=== PATIENT | male | born 1950 | race American Indian/Alaskan Native ===

== ENCOUNTER 2020-04-24 23:46 | Inpatient (IN) | payer MEDICARE, MEDICAID ==
--- NOTE | 2020-04-25 08:50 | History and Physical Report ---
GP History & Physical - History of Present Illness Date of admission: 04/25/20 Date of Examination: 04/25/20 Reason for Admission: Danger to self, Failure of Outpatient Treatment History of Present Illness: The patient's medical record was reviewed and the patient's progress was discussed with the nursing staff. The admission note states the pateint increasingly having auditory hallucination with the voice telling him to kill self by jumping into the front of a truck. Pt had previous hx/o suicide attempt by jumping into the traffic. During my interview with the patient today, he is in the dayroom awake. He is a/o x 3. The patient makes fair eye contact. He is calm and cooperative. He says he was admitted for "hearing voices." The patient says "I called 911 because it scared me." He says at the time "they were telling me to kill myself." The patient says "but right now I can't make out what they are saying." He says "it's just a bunch of talk right now." He denies SI/HI at present, but states he was "early this morning." He says, "just thoughts because of the voices." The patient says he's had one suicide attempt in the past. He denies any illicit drug use, alcohol or nicotine. PAST PSYCHIATRIC HISTORY: Diagnoses: Schizophrenia, bipolar Suicide attempts or Self-harm behavior: Once Prior psychiatric hospitalizations: "many" Substance Abuse history: Denies Previous psychiatric medications tried: Could not recall Outpatient treatment: Not recently PAST MEDICAL HISTORY: None reported Family Psychiatric History: None reported or documented SOCIAL HISTORY Marital Status: Single Living Arrangements: Alone Employment Status: Disbaled Access to guns/weapons: None reported Education: Bachelors History of Abuse: None reported Legal History: None reported REVIEW OF SYSTEMS Constitutional: Negative for weight loss ENT: Negative for stridor Respiratory: Negative for cough or hemoptysis All other systems reviewed and are negative MENTAL STATUS EXAMINATION General Appearance: Dressed appropriately Behavior: fair eye contact, calm and cooperative Cooperation: Participating/engaged Psychomotor Behavior: Psychomotor normal Mood: Okay Affect and affective range: congruent with mood Thought Process: goal oriented Thought Content: within reality Speech: Normal rate, volume and rythm Suicidal Ideation: denies SI Homicidal Ideation: Denies HI Hallucinations: Auditory Delusions: None elicited Impulse Control: unimpaired Insight and Judgment: Limited insight and judgment Memory: Normal Attention: Normal Orientation: Alert, oriented Assessment and Plan (1) Schizoaffective Disorder, Bipolar Type Current Visit: Yes Status: Acute Treatment Plan Patient admitted for inpatient psychiatric evaluation, medication adjustment and close monitoring The patient's behavior, mood, sleep and appetite will be closely monitored. Patient enrolled in individual and group therapeutic sessions and encouraged to attend. Patient provided with a safe and structured environment. Patient's physical health needs will be addressed by the Hospitalist. Hospitalist Consulted Labs including CBC, CMP, Lipid profile and Hemoglobin A1C levels ordered for baseline reference Social Assessment will be completed and the Real Estate Agent/Broker will work with patient and family to ensure a suitable and safe disposition Medication adjustment will be made as clinically indicated Start Risperidone 0.25mg po BID Usual Wellness Confucianist/Preservation: - Start Trazodone 50 mg po QHS - Start Melatonin 5 mg po QHS to promote circadian rhythm - Start [place]-3 for brain health, reduce impulsivity, and as adjunctive treatment for mood disorder, continue upon discharge given overall benefits. The patient agreed on the treatment plan, understood the risk, benefit, alternative treatment, potential consequence of no treatment, and gave informed consent. Initial Certification Inpatient psych services: I certify that the inpatient psychiatric services are required for treatment that could reasonably be expected to improve the patient's condition for command hallucinations and suicidal ideation. Estimated days: 7 Post hospital care: primary care provider, psychiatric provider Legal Status: Voluntary Reaction to Hospitalization: Accepting Medications and Allergies Allergies Allergy/AdvReac Type Severity Reaction Status Date / Time divalproex sodium Allergy Unknown Verified 04/25/20 01:17 [From Depakote] haloperidol [From Haldol] Allergy Unknown Verified 04/25/20 01:17 quetiapine [From Seroquel] Allergy Unknown Verified 04/25/20 01:17 Home Medications Medication Instructions Recorded Confirmed Last Taken Type Albuterol Sulfate [Proair 90 mcg IH Q6H PRN MDD 2 puffs 04/25/20 04/25/20 Unknown History Respiclick] Diclofenac EC [Voltaren] 50 mg PO BID 04/25/20 04/25/20 Unknown History Empagliflozin [Jardiance] 10 mg PO DAILY 04/25/20 04/25/20 Unknown History Furosemide [Lasix TAB] 20 mg PO DAILY 04/25/20 04/25/20 Unknown History Kenalog 0.1% CREAM 1 applic TP BID 04/25/20 04/25/20 Unknown History Losartan [Cozaar] 100 mg PO QDAY 04/25/20 04/25/20 Unknown History Lurasidone HCl [Latuda] 20 mg PO QPM 04/25/20 04/25/20 Unknown History Pantoprazole [Protonix TAB] 40 mg PO DAILY 04/25/20 04/25/20 Unknown History Potassium Chloride [K-Dur] 10 meq PO QDAY 04/25/20 04/25/20 Unknown History buPROPion [Wellbutrin] 100 mg PO DAILY 04/25/20 04/25/20 Unknown History glipiZIDE [Glucotrol] 5 mg PO BID 04/25/20 04/25/20 Unknown History traZODone [Desyrel] 100 mg PO HS 04/25/20 04/25/20 Unknown History Results - Results Labs/Vitals: Laboratory Last Values POC Glucose 114 mg/dL (70-105) H 04/25/20 07:56 Last Vital Signs Temp 97.8 F 04/25/20 02:41 Pulse 66 04/25/20 02:41 Resp 18 04/25/20 02:41 BP 128/71 04/25/20 02:41 Pulse Ox 97 04/25/20 02:41 Physical Examination - Constitutional Vitals: Vital Signs Temp Pulse Resp BP Pulse Ox 97.8 F 66 18 128/71 97 04/25/20 02:41 04/25/20 02:41 04/25/20 02:41 04/25/20 02:41 04/25/20 02:41 Temperature -Last 24 Hours Temperature 97.8 F Mental Status Exam - Vital signs Last Vital Signs Temp 97.8 F 04/25/20 02:41 Pulse 66 04/25/20 02:41 Resp 18 04/25/20 02:41 BP 128/71 04/25/20 02:41 Pulse Ox 97 04/25/20 02:41 Physician Certification - Certification Statement Physician Certification Statement: This is an acknowledgement statement that CHARY BLOOM is a 69 year old M who requires inpatient psychiatric admission for treatment which could reasonably be expected to improve the patient's condition for Estimated period of time patient will need to remain in the hospital: [ ] Plan for post-hospital care: [ ]
[2020-04-25] MEDS ORDERED: NON-FORMULARY EACH (Albuterol Sulfate [Proair Respiclick] 90 MCG) IH PRN (09:03)
[2020-04-25] MEDS ORDERED: ALBUTEROL 2.5 MG/3 ML NEBU IH PRN (09:21)
[2020-04-25] MEDS ORDERED: EMPAGLIFLOZIN 10 MG PO SCH (10:00)
[2020-04-25] MEDS ORDERED: KENALOG 0.1% TP SCH (10:00)
[2020-04-25] MEDS: PANTOPRAZOLE 40 MG TAB PO SCH (10:50)
[2020-04-25] MEDS: OMEGA-3 FATTY ACIDS/FISH OIL 1 GRAM CAP PO SCH ×2 (10:50→21:28)
[2020-04-25] MEDS: risperiDONE 0.25 MG TAB PO SCH ×2 (10:50→21:29)
[2020-04-25] MEDS: FUROSEMIDE 20 MG TAB PO SCH (10:50)
[2020-04-25] MEDS: buPROPion 100 MG TAB PO SCH (10:50)
[2020-04-25] MEDS: TRIAMCINOLONE 0.1% CREAM 15 GM TP SCH ×2 (10:50→21:27)
[2020-04-25] MEDS: DICLOFENAC EC 25 MG TAB PO SCH ×2 (10:51→21:28)
[2020-04-25] MEDS: LOSARTAN 50 MG TAB PO SCH (10:52)
[2020-04-25] MEDS: glipiZIDE 5 MG TAB PO SCH ×2 (10:52→17:46)
[2020-04-25] MEDS: POTASSIUM CHLORIDE ER 10 MEQ TAB PO SCH (17:52)
[2020-04-25] MEDS ORDERED: LURASIDONE HCL 20 MG PO SCH (18:00)
[2020-04-25] MEDS ORDERED: MELATONIN 5 MG TAB PO PRN (21:00)
[2020-04-25] MEDS: traZODone 100 MG TAB PO SCH ×2 (21:29→22:10)
[2020-04-26] MEDS: buPROPion 100 MG TAB PO SCH (10:36)
[2020-04-26] MEDS: POTASSIUM CHLORIDE ER 10 MEQ TAB PO SCH (10:36)
[2020-04-26] MEDS: OMEGA-3 FATTY ACIDS/FISH OIL 1 GRAM CAP PO SCH ×2 (10:36→21:22)
[2020-04-26] MEDS: glipiZIDE 5 MG TAB PO SCH ×2 (10:37→18:08)
[2020-04-26] MEDS: FUROSEMIDE 20 MG TAB PO SCH (10:37)
[2020-04-26] MEDS: LOSARTAN 50 MG TAB PO SCH (10:37)
[2020-04-26] MEDS: PANTOPRAZOLE 40 MG TAB PO SCH (10:37)
[2020-04-26] MEDS: risperiDONE 0.25 MG TAB PO SCH ×2 (10:39→21:21)
[2020-04-26] MEDS: TRIAMCINOLONE 0.1% CREAM 15 GM TP SCH ×2 (10:44→21:22)
--- NOTE | 2020-04-26 12:14 | Progress Note ---
Subjective Date of service: 04/26/20 Principal diagnosis: Schizophrenia Subjective Comment: During my interview with the patient this morning, he is in the dayroom. He is a/o x 3. He says his night went "find" and he feels "okay." When asked about the hallucinations, he says "yea I still hear them but they are not that bad." When asked him what did he hear "he says the same thing, them telling me to kill myself." He denies SI/HI. REVIEW OF SYSTEMS Constitutional: Negative for weight loss ENT: Negative for stridor Respiratory: Negative for cough or hemoptysis All other systems reviewed and are negative MENTAL STATUS EXAMINATION General Appearance: Dressed appropriately Behavior: fair eye contact, calm and cooperative Cooperation: Participating/engaged Psychomotor Behavior: Psychomotor normal Mood: Okay Affect and affective range: congruent with mood Thought Process: goal oriented Thought Content: within reality Speech: Normal rate, volume and rythm Suicidal Ideation: denies SI Homicidal Ideation: Denies HI Hallucinations: Auditory Delusions: None elicited Impulse Control: unimpaired Insight and Judgment: Limited insight and judgment Memory: Normal Attention: Normal Orientation: Alert, oriented Assessment and Plan (1) Schizoaffective Disorder, Bipolar Type Current Visit: Yes Status: Acute Treatment Plan Patient admitted for inpatient psychiatric evaluation, medication adjustment and close monitoring The patient's behavior, mood, sleep and appetite will be closely monitored. Patient enrolled in individual and group therapeutic sessions and encouraged to attend. Patient provided with a safe and structured environment. Patient's physical health needs will be addressed by the Hospitalist. Hospitalist Consulted Labs including CBC, CMP, Lipid profile and Hemoglobin A1C levels ordered for baseline reference Social Assessment will be completed and the Bank Courier will work with patient and family to ensure a suitable and safe disposition Medication adjustment will be made as clinically indicated Increased Risperidone 0.5mg po BID d/c trazodone 50mg qhs (pt states he's allergic) Scheduled Melatonin 5mg qhs Usual Wellness Gnosticist/Preservation: - Start Trazodone 50 mg po QHS - Start Melatonin 5 mg po QHS to promote circadian rhythm - Start [place]-3 for brain health, reduce impulsivity, and as adjunctive treatment for mood disorder, continue upon discharge given overall benefits. The patient agreed on the treatment plan, understood the risk, benefit, alternative treatment, potential consequence of no treatment, and gave informed consent. Estimated days: 7 Post hospital care: primary care provider, psychiatric provider Medications and Allergies Allergies Allergy/AdvReac Type Severity Reaction Status Date / Time divalproex sodium Allergy Unknown Verified 04/25/20 01:17 [From Depakote] haloperidol [From Haldol] Allergy Unknown Verified 04/25/20 01:17 quetiapine [From Seroquel] Allergy Unknown Verified 04/25/20 01:17 Home Medications Medication Instructions Recorded Confirmed Last Taken Type Albuterol Sulfate [Proair 90 mcg IH Q6H PRN MDD 2 puffs 04/25/20 04/25/20 Unknown History Respiclick] Diclofenac EC [Voltaren] 50 mg PO BID 04/25/20 04/25/20 Unknown History Empagliflozin [Jardiance] 10 mg PO DAILY 04/25/20 04/25/20 Unknown History Furosemide [Lasix TAB] 20 mg PO DAILY 04/25/20 04/25/20 Unknown History Kenalog 0.1% CREAM 1 applic TP BID 04/25/20 04/25/20 Unknown History Losartan [Cozaar] 100 mg PO QDAY 04/25/20 04/25/20 Unknown History Lurasidone HCl [Latuda] 20 mg PO QPM 04/25/20 04/25/20 Unknown History Pantoprazole [Protonix TAB] 40 mg PO DAILY 04/25/20 04/25/20 Unknown History Potassium Chloride [K-Dur] 10 meq PO QDAY 04/25/20 04/25/20 Unknown History buPROPion [Wellbutrin] 100 mg PO DAILY 04/25/20 04/25/20 Unknown History glipiZIDE [Glucotrol] 5 mg PO BID 04/25/20 04/25/20 Unknown History traZODone [Desyrel] 100 mg PO HS 04/25/20 04/25/20 Unknown History Active Meds: Active Medications Albuterol (Proventil) 2.5 mg IH Q4H PRN PRN Reason: Shortness Of Breath Bupropion HCl (Wellbutrin) 100 mg PO DAILY [facility] Last Admin: 04/26/20 10:36 Dose: 100 mg Documented by: Diclofenac Sodium (Voltaren) 50 mg PO BID [facility] Last Admin: 04/25/20 21:28 Dose: 50 mg Documented by: Fish Oil (Fish Oil) 2,000 mg PO BID [facility] Last Admin: 04/26/20 10:36 Dose: 2,000 mg Documented by: Furosemide (Lasix) 20 mg PO DAILY [facility] Last Admin: 04/26/20 10:37 Dose: 20 mg Documented by: Glipizide (Glucotrol) 5 mg PO BIDDIAB [facility] Last Admin: 04/26/20 10:37 Dose: 5 mg Documented by: Losartan Potassium (Cozaar) 100 mg PO QDAY [facility] Last Admin: 04/26/20 10:37 Dose: 100 mg Documented by: Melatonin (Melatonin) 5 mg PO QHS PRN PRN Reason: Sleep Miscellaneous Medication (Empagliflozin [Jardiance]) 10 mg PO DAILY [facility] Miscellaneous Medication (Lurasidone Hcl [Latuda]) 20 mg PO QPM [facility] Pantoprazole Sodium (Protonix) 40 mg PO DAILY [facility] Last Admin: 04/26/20 10:37 Dose: 40 mg Documented by: Potassium Chloride (K-Dur) 10 meq PO QDAY [facility] Last Admin: 04/26/20 10:36 Dose: 10 meq Documented by: Risperidone (Risperdal) 0.25 mg PO BID [facility] Last Admin: 04/26/20 10:39 Dose: 0.25 mg Documented by: Trazodone HCl (Desyrel) 100 mg PO HS [facility] Last Admin: 04/25/20 22:10 Dose: Not Given Documented by: Triamcinolone Acetonide (Kenalog) 1 applic TP BID [facility] Last Admin: 04/26/20 10:44 Dose: 1 applic Documented by: Results - Results Labs/Vitals: Laboratory Last Values POC Glucose 123 mg/dL (70-105) H 04/26/20 08:08 Last Vital Signs Temp 99.4 F 04/26/20 08:54 Pulse 85 04/26/20 10:37 Resp 18 04/26/20 08:54 BP 122/71 04/26/20 10:37 Pulse Ox 98 04/26/20 08:54
--- NOTE | 2020-04-26 14:17 | Consultation ---
History of Present Illness - Reason for Consult Consult date: 04/26/20 - History of Present Illness HPI As per psych The patient's medical record was reviewed and the patient's progress was discussed with the nursing staff. The admission note states the pateint increasingly having auditory hallucination with the voice telling him to kill self by jumping into the front of a truck. Pt had previous hx/o suicide attempt by jumping into the traffic. During my interview with the patient today, he is in the dayroom awake. He is a/o x 3. The patient makes fair eye contact. He is calm and cooperative. He says he was admitted for "hearing voices." The patient says "I called 911 because it scared me." He says at the time "they were telling me to kill myself." The patient says "but right now I can't make out what they are saying." He says "it's just a bunch of talk right now." He denies SI/HI at present, but states he was "early this morning." He says, "just thoughts because of the voices." The patient says he's had one suicide attempt in the past. He denies any illicit drug use, alcohol or nicotine. Patient seen and examined at bedside in psych unit. He mentions he has a history of DM and HTN . His home medications have been reconciled. Past History Past Medical History: diabetes, hypertension Medications and Allergies Allergies Allergy/AdvReac Type Severity Reaction Status Date / Time divalproex sodium Allergy Unknown Verified 04/25/20 01:17 [From Depakote] haloperidol [From Haldol] Allergy Unknown Verified 04/25/20 01:17 quetiapine [From Seroquel] Allergy Unknown Verified 04/25/20 01:17 Home Medications Medication Instructions Recorded Confirmed Last Taken Type Albuterol Sulfate [Proair 90 mcg IH Q6H PRN MDD 2 puffs 04/25/20 04/25/20 Unknown History Respiclick] Diclofenac EC [Voltaren] 50 mg PO BID 04/25/20 04/25/20 Unknown History Empagliflozin [Jardiance] 10 mg PO DAILY 04/25/20 04/25/20 Unknown History Furosemide [Lasix TAB] 20 mg PO DAILY 04/25/20 04/25/20 Unknown History Kenalog 0.1% CREAM 1 applic TP BID 04/25/20 04/25/20 Unknown History Losartan [Cozaar] 100 mg PO QDAY 04/25/20 04/25/20 Unknown History Lurasidone HCl [Latuda] 20 mg PO QPM 04/25/20 04/25/20 Unknown History Pantoprazole [Protonix TAB] 40 mg PO DAILY 04/25/20 04/25/20 Unknown History Potassium Chloride [K-Dur] 10 meq PO QDAY 04/25/20 04/25/20 Unknown History buPROPion [Wellbutrin] 100 mg PO DAILY 04/25/20 04/25/20 Unknown History glipiZIDE [Glucotrol] 5 mg PO BID 04/25/20 04/25/20 Unknown History traZODone [Desyrel] 100 mg PO HS 04/25/20 04/25/20 Unknown History Active Meds: Active Medications Albuterol (Proventil) 2.5 mg IH Q4H PRN PRN Reason: Shortness Of Breath Bupropion HCl (Wellbutrin) 100 mg PO DAILY [facility] Last Admin: 04/26/20 10:36 Dose: 100 mg Documented by: Diclofenac Sodium (Voltaren) 50 mg PO BID [facility] Last Admin: 04/25/20 21:28 Dose: 50 mg Documented by: Fish Oil (Fish Oil) 2,000 mg PO BID [facility] Last Admin: 04/26/20 10:36 Dose: 2,000 mg Documented by: Furosemide (Lasix) 20 mg PO DAILY [facility] Last Admin: 04/26/20 10:37 Dose: 20 mg Documented by: Glipizide (Glucotrol) 5 mg PO BIDDIAB [facility] Last Admin: 04/26/20 10:37 Dose: 5 mg Documented by: Losartan Potassium (Cozaar) 100 mg PO QDAY [facility] Last Admin: 04/26/20 10:37 Dose: 100 mg Documented by: Melatonin (Melatonin) 5 mg PO QHS [facility] Miscellaneous Medication (Empagliflozin [Jardiance]) 10 mg PO DAILY [facility] Miscellaneous Medication (Lurasidone Hcl [Latuda]) 20 mg PO QPM [facility] Pantoprazole Sodium (Protonix) 40 mg PO DAILY [facility] Last Admin: 04/26/20 10:37 Dose: 40 mg Documented by: Potassium Chloride (K-Dur) 10 meq PO QDAY [facility] Last Admin: 04/26/20 10:36 Dose: 10 meq Documented by: Risperidone (Risperdal) 0.5 mg PO BID [facility] Triamcinolone Acetonide (Kenalog) 1 applic TP BID [facility] Last Admin: 04/26/20 10:44 Dose: 1 applic Documented by: Exam - Physical Exam Narrative exam: VITAL SIGNS: Reviewed. GENERAL: Awake and alert on response to questions HEAD: No signs of head trauma. EYES: Pupils are equal. Extraocular motions intact. EARS: Hearing grossly intact. MOUTH: Oropharynx is normal. NECK: No adenopathy, no JVD. CHEST: Chest with diminished breath sounds bilaterally. No wheezes, rales, or rhonchi. CARDIAC: Regular rate and rhythm. S1 and S2, without murmurs, gallops, or rubs. VASCULAR: No Edema. Peripheral pulses normal and equal in all extremities. ABDOMEN: Soft, non tender and non distended. No rebound or guarding, and no masses palpated. Bowel Sounds normal. MUSCULOSKELETAL: Good range of motion of all major joints. Extremities without clubbing, cyanosis or edema. NEUROLOGIC EXAM: Alert and oriented x3. No focal neurologic deficits PSYCHIATRIC: Talkative SKIN: No obvious lesions - Constitutional Vitals: Temp Pulse Resp BP Pulse Ox 99.4 F 85 18 122/71 98 04/26/20 08:54 04/26/20 10:37 04/26/20 08:54 04/26/20 10:37 04/26/20 08:54 Results - Labs Labs: Abnormal lab results 10/24/20 10/24/20 10/25/20 Range/Units 17:12 19:47 08:08 POC Glucose 198 H 150 H 123 H (70-105) mg/dL Assessment and Plan - Patient Problems (1) Psychiatric diagnosis Current Visit: Yes Status: Acute Plan to address problem: Management as per psych (2) Hypertension Current Visit: Yes Status: Acute Plan to address problem: Continue losartan (3) Diabetes mellitus Current Visit: Yes Status: Acute Plan to address problem: Continue current medications Monitor blood glucose Check HbA1c and lipid panel.
[2020-04-26] MEDS: DICLOFENAC EC 25 MG TAB PO SCH ×2 (18:03→21:21)
[2020-04-26] MEDS: MELATONIN 5 MG TAB PO SCH (21:22)
[2020-04-26 22:08] LABS: Bilirubin,Urine NEG (Negative); Blood,Urine SM (Negative); Color,Urine Yellow (Yellow); Protein,Urine <15 mg/dL mg/dL (Negative); Urobilinogen,Urine < 2.0 mg/dL (<2.0); WBC,Urine < 1.0 /HPF (0.0-6.0)
[2020-04-27] MEDS: glipiZIDE 5 MG TAB PO SCH ×2 (09:17→16:35)
[2020-04-27] MEDS: buPROPion 100 MG TAB PO SCH (09:17)
[2020-04-27] MEDS: TRIAMCINOLONE 0.1% CREAM 15 GM TP SCH ×2 (09:17→22:16)
[2020-04-27] MEDS: FUROSEMIDE 20 MG TAB PO SCH (09:18)
[2020-04-27] MEDS: OMEGA-3 FATTY ACIDS/FISH OIL 1 GRAM CAP PO SCH ×2 (09:18→22:14)
[2020-04-27] MEDS: DICLOFENAC EC 25 MG TAB PO SCH ×2 (09:18→22:15)
[2020-04-27] MEDS: PANTOPRAZOLE 40 MG TAB PO SCH (09:18)
[2020-04-27] MEDS: risperiDONE 0.25 MG TAB PO SCH ×2 (09:18→22:17)
[2020-04-27] MEDS: LOSARTAN 50 MG TAB PO SCH (09:18)
[2020-04-27] MEDS: POTASSIUM CHLORIDE ER 10 MEQ TAB PO SCH (09:19)
[2020-04-27 09:43] LABS: Basophils # (Auto) 0.1 K/mm3 (0.0-0.1); Eosinophils # (Auto) 0.2 K/mm3 (0.0-0.4); Eosinophils % (Auto) 2.4 % (0.0-4.3); Hematocrit 43.6 % (35.5-45.6); Hemoglobin 15.2 gm/dl (11.8-15.2); Lymphocytes # (Auto) 2.4 K/mm3 (1.2-5.4); Lymphocytes % (Auto) 35.6 % (13.4-35.0); Mean Corpuscular HGB Conc 35 % (32-34); Mean Corpuscular Volume 88 fl (84-94); Monocytes # (Auto) 0.7 K/mm3 (0.0-0.8); Monocytes % (Auto) 10.5 % (0.0-7.3); Platelet Count 193 K/mm3 (140-440); Red Blood Count 4.97 M/mm3 (3.65-5.03); Red Cell Distribution Width 14.7 % (13.2-15.2)
[2020-04-27 09:55] LABS: Alanine Aminotransferase 24 units/L (7-56); Albumin 4.1 g/dL (3.9-5); BUN/Creatinine Ratio 13; Blood Urea Nitrogen 17 mg/dL (9-20); Calcium 9.5 mg/dL (8.4-10.2); Chol/HDL Ratio 4.04 %; HDL Cholesterol 42 mg/dL (40-59); Hemolysis Index 11; LDL Cholesterol,Direct 110 mg/dL (50-130)
[2020-04-27] MEDS: MELATONIN 5 MG TAB PO SCH (22:14)
[2020-04-28] MEDS ORDERED: OMEGA-3 FATTY ACIDS/FISH OIL 1 GRAM CAP PO ONE (09:55)
[2020-04-28] MEDS ORDERED: FUROSEMIDE 20 MG TAB ONE (09:55)
[2020-04-28] MEDS ORDERED: LOSARTAN 50 MG TAB ONE (09:55)
[2020-04-28] MEDS ORDERED: PANTOPRAZOLE 40 MG TAB PO ONE (09:55)
[2020-04-28] MEDS ORDERED: risperiDONE 0.25 MG TAB ONE (09:55)
[2020-04-28] MEDS ORDERED: buPROPion 100 MG TAB ONE (10:00)
[2020-04-28] MEDS: DICLOFENAC EC 25 MG TAB PO SCH ×2 (10:16→21:20)
[2020-04-28] MEDS: LOSARTAN 50 MG TAB PO SCH (17:16)
[2020-04-28] MEDS: glipiZIDE 5 MG TAB PO SCH ×2 (17:16→18:19)
[2020-04-28] MEDS: OMEGA-3 FATTY ACIDS/FISH OIL 1 GRAM CAP PO SCH ×2 (17:17→21:24)
[2020-04-28] MEDS: FUROSEMIDE 20 MG TAB PO SCH (17:17)
[2020-04-28] MEDS: risperiDONE 0.25 MG TAB PO SCH ×2 (17:17→21:22)
[2020-04-28] MEDS: PANTOPRAZOLE 40 MG TAB PO SCH (17:17)
[2020-04-28] MEDS: TRIAMCINOLONE 0.1% CREAM 15 GM TP SCH ×2 (17:17→21:22)
[2020-04-28] MEDS: POTASSIUM CHLORIDE ER 10 MEQ TAB PO SCH (17:17)
[2020-04-28] MEDS: buPROPion 100 MG TAB PO SCH (17:18)
--- NOTE | 2020-04-28 18:38 | Progress Note ---
Subjective Date of service: 04/28/20 Principal diagnosis: Schizophrenia Subjective Comment: During my interview with the patient this morning, he is in the dayroom. He is a/o x 3. He is much better today than yesterday. He is smiling and verbalizes "feeling a lot better." He says he slept good. He denies SI/HI. He also denies hallucinations of any kind. REVIEW OF SYSTEMS Constitutional: Negative for weight loss ENT: Negative for stridor Respiratory: Negative for cough or hemoptysis All other systems reviewed and are negative MENTAL STATUS EXAMINATION General Appearance: Dressed appropriately Behavior: good eye contact, calm and cooperative Cooperation: Participating/engaged Psychomotor Behavior: Psychomotor normal Mood: Okay Affect and affective range: congruent with mood Thought Process: goal oriented Thought Content: within reality Speech: Normal rate, volume and rhythm Suicidal Ideation: denies SI Homicidal Ideation: Denies HI Hallucinations: Denies Delusions: None elicited Impulse Control: unimpaired Insight and Judgment: Limited insight and judgment Memory: Normal Attention: Normal Orientation: Alert, oriented Assessment and Plan (1) Schizoaffective Disorder, Bipolar Type Current Visit: Yes Status: Acute Treatment Plan Patient admitted for inpatient psychiatric evaluation, medication adjustment and close monitoring The patient's behavior, mood, sleep and appetite will be closely monitored. Patient enrolled in individual and group therapeutic sessions and encouraged to attend. Patient provided with a safe and structured environment. Patient's physical health needs will be addressed by the Hospitalist. Hospitalist Consulted Labs including CBC, CMP, Lipid profile and Hemoglobin A1C levels ordered for baseline reference Social Assessment will be completed and the Still Operator Helper will work with patient and family to ensure a suitable and safe disposition Medication adjustment will be made as clinically indicated No changes today Usual Wellness Gnosticist/Preservation: - Start Trazodone 50 mg po QHS - Start Melatonin 5 mg po QHS to promote circadian rhythm - Start [place]-3 for brain health, reduce impulsivity, and as adjunctive treatment for mood disorder, continue upon discharge given overall benefits. The patient agreed on the treatment plan, understood the risk, benefit, alternative treatment, potential consequence of no treatment, and gave informed consent. Estimated days: 2 Post hospital care: primary care provider, psychiatric provider Medications and Allergies Allergies Allergy/AdvReac Type Severity Reaction Status Date / Time divalproex sodium Allergy Unknown Verified 04/25/20 01:17 [From Depakote] haloperidol [From Haldol] Allergy Unknown Verified 04/25/20 01:17 quetiapine [From Seroquel] Allergy Unknown Verified 04/25/20 01:17 Home Medications Medication Instructions Recorded Confirmed Last Taken Type Albuterol Sulfate [Proair 90 mcg IH Q6H PRN MDD 2 puffs 04/25/20 04/25/20 Unknown History Respiclick] Diclofenac EC [Voltaren] 50 mg PO BID 04/25/20 04/25/20 Unknown History Empagliflozin [Jardiance] 10 mg PO DAILY 04/25/20 04/25/20 Unknown History Furosemide [Lasix TAB] 20 mg PO DAILY 04/25/20 04/25/20 Unknown History Kenalog 0.1% CREAM 1 applic TP BID 04/25/20 04/25/20 Unknown History Losartan [Cozaar] 100 mg PO QDAY 04/25/20 04/25/20 Unknown History Lurasidone HCl [Latuda] 20 mg PO QPM 04/25/20 04/25/20 Unknown History Pantoprazole [Protonix TAB] 40 mg PO DAILY 04/25/20 04/25/20 Unknown History Potassium Chloride [K-Dur] 10 meq PO QDAY 04/25/20 04/25/20 Unknown History buPROPion [Wellbutrin] 100 mg PO DAILY 04/25/20 04/25/20 Unknown History glipiZIDE [Glucotrol] 5 mg PO BID 04/25/20 04/25/20 Unknown History traZODone [Desyrel] 100 mg PO HS 04/25/20 04/25/20 Unknown History Active Meds: Active Medications Albuterol (Proventil) 2.5 mg IH Q4H PRN PRN Reason: Shortness Of Breath Bupropion HCl (Wellbutrin) 100 mg PO DAILY [facility] Last Admin: 04/28/20 17:18 Dose: Not Given Documented by: Diclofenac Sodium (Voltaren) 50 mg PO BID [facility] Last Admin: 04/28/20 10:16 Dose: Not Given Documented by: Fish Oil (Fish Oil) 2,000 mg PO BID [facility] Last Admin: 04/28/20 17:17 Dose: Not Given Documented by: Furosemide (Lasix) 20 mg PO DAILY [facility] Last Admin: 04/28/20 17:17 Dose: Not Given Documented by: Glipizide (Glucotrol) 5 mg PO BIDDIAB [facility] Last Admin: 04/28/20 18:19 Dose: 5 mg Documented by: Losartan Potassium (Cozaar) 100 mg PO QDAY [facility] Last Admin: 04/28/20 17:16 Dose: Not Given Documented by: Melatonin (Melatonin) 5 mg PO QHS [facility] Last Admin: 04/27/20 22:14 Dose: 5 mg Documented by: Miscellaneous Medication (Empagliflozin [Jardiance]) 10 mg PO DAILY [facility] Miscellaneous Medication (Lurasidone Hcl [Latuda]) 20 mg PO QPM [facility] Pantoprazole Sodium (Protonix) 40 mg PO DAILY [facility] Last Admin: 04/28/20 17:17 Dose: Not Given Documented by: Potassium Chloride (K-Dur) 10 meq PO QDAY [facility] Last Admin: 04/28/20 17:17 Dose: Not Given Documented by: Risperidone (Risperdal) 0.5 mg PO BID [facility] Last Admin: 04/28/20 17:17 Dose: Not Given Documented by: Triamcinolone Acetonide (Kenalog) 1 applic TP BID [facility] Last Admin: 04/28/20 17:17 Dose: Not Given Documented by: Results - Results Labs/Vitals: Laboratory Last Values WBC 6.8 K/mm3 (4.5-11.0) 04/27/20 08:56 RBC 4.97 M/mm3 (3.65-5.03) 04/27/20 08:56 Hgb 15.2 gm/dl (11.8-15.2) 04/27/20 08:56 Hct 43.6 % (35.5-45.6) 04/27/20 08:56 MCV 88 fl (84-94) 04/27/20 08:56 MCH 31 pg (28-32) 04/27/20 08:56 MCHC 35 % (32-34) H 04/27/20 08:56 RDW 14.7 % (13.2-15.2) 04/27/20 08:56 Plt Count 193 K/mm3 (140-440) 04/27/20 08:56 Lymph % (Auto) 35.6 % (13.4-35.0) H 04/27/20 08:56 [place] % (Auto) 10.5 % (0.0-7.3) H 04/27/20 08:56 Eos % (Auto) 2.4 % (0.0-4.3) 04/27/20 08:56 Baso % (Auto) 1.0 % (0.0-1.8) 04/27/20 08:56 Lymph # (Auto) 2.4 K/mm3 (1.2-5.4) 04/27/20 08:56 [place] # (Auto) 0.7 K/mm3 (0.0-0.8) 04/27/20 08:56 Eos # (Auto) 0.2 K/mm3 (0.0-0.4) 04/27/20 08:56 Baso # (Auto) 0.1 K/mm3 (0.0-0.1) 04/27/20 08:56 Seg Neutrophils % 50.5 % (40.0-70.0) 04/27/20 08:56 Seg Neutrophils # 3.4 K/mm3 (1.8-7.7) 04/27/20 08:56 Sodium 131 mmol/L (137-145) L 04/27/20 08:56 Potassium 4.3 mmol/L (3.6-5.0) 04/27/20 08:56 Chloride 95.8 mmol/L (98-107) L 04/27/20 08:56 Carbon Dioxide 23 mmol/L (22-30) 04/27/20 08:56 Anion Gap 17 mmol/L 04/27/20 08:56 BUN 17 mg/dL (9-20) 04/27/20 08:56 Creatinine 1.3 mg/dL (0.8-1.3) 04/27/20 08:56 Estimated GFR > 60 ml/min 04/27/20 08:56 BUN/Creatinine Ratio 13 % 04/27/20 08:56 Glucose 193 mg/dL (75-100) H 04/27/20 08:56 POC Glucose 121 mg/dL (70-105) H 04/28/20 07:33 Hemoglobin A1c 6.9 % (4-6) H 04/27/20 08:56 Calcium 9.5 mg/dL (8.4-10.2) 04/27/20 08:56 Total Bilirubin 0.60 mg/dL (0.1-1.2) 04/27/20 08:56 AST 29 units/L (5-40) 04/27/20 08:56 ALT 24 units/L (7-56) 04/27/20 08:56 Alkaline Phosphatase 61 units/L (35-129) 04/27/20 08:56 Total Protein 8.0 g/dL (6.3-8.2) 04/27/20 08:56 Albumin 4.1 g/dL (3.9-5) 04/27/20 08:56 Albumin/Globulin Ratio 1.1 % 04/27/20 08:56 Triglycerides 175 mg/dL (2-149) H 04/27/20 08:56 Cholesterol 170 mg/dL (50-199) 04/27/20 08:56 LDL Cholesterol Direct 110 mg/dL (50-130) 04/27/20 08:56 HDL Cholesterol 42 mg/dL (40-59) 04/27/20 08:56 Cholesterol/HDL Ratio 4.04 % 04/27/20 08:56 TSH 1.070 mlU/mL (0.270-4.200) 04/27/20 08:56 Urine Color Yellow (Yellow) 04/25/20 Unknown Urine Turbidity Clear (Clear) 04/25/20 Unknown Urine pH 6.0 (5.0-7.0) 04/25/20 Unknown Ur Specific [place] 1.005 (1.003-1.030) 04/25/20 Unknown Urine Protein <15 mg/dl mg/dL (Negative) 04/25/20 Unknown Urine Glucose (UA) 150 mg/dL (Negative) 04/25/20 Unknown Urine Ketones Neg mg/dL (Negative) 04/25/20 Unknown Urine Blood Sm (Negative) 04/25/20 Unknown Urine Nitrite Neg (Negative) 04/25/20 Unknown Urine Bilirubin Neg (Negative) 04/25/20 Unknown Urine Urobilinogen < 2.0 mg/dL (<2.0) 04/25/20 Unknown Ur Leukocyte Esterase Neg (Negative) 04/25/20 Unknown Urine WBC (Auto) < 1.0 /HPF (0.0-6.0) 04/25/20 Unknown Urine RBC (Auto) 2.0 /HPF (0.0-6.0) 04/25/20 Unknown U Epithel Cells (Auto) < 1.0 /HPF (0-13.0) 04/25/20 Unknown Last Vital Signs Temp 98.7 F 04/28/20 07:21 Pulse 73 04/28/20 07:21 Resp 18 04/28/20 07:21 BP 125/75 04/28/20 07:21 Pulse Ox 96 04/28/20 07:21
--- NOTE | 2020-04-28 18:46 | Progress Note ---
Subjective Date of service: 04/27/20 Principal diagnosis: Schizophrenia Subjective Comment: During my interview with the patient this morning, he is in the dayroom. He is a/o x 3. He is off to himself, withdrawn. The patient becomes tearful during the interview. He says "I'm homeless. I don't have anywhere to stay." He verbalize "hearing voices telling me to do something to myself." Reason for continued inpatient treatment: The patient has command hallucinations. Will continue to treat and monitor REVIEW OF SYSTEMS Constitutional: Negative for weight loss ENT: Negative for stridor Respiratory: Negative for cough or hemoptysis All other systems reviewed and are negative MENTAL STATUS EXAMINATION General Appearance: Dressed appropriately Behavior: poor eye contact, calm and cooperative Cooperation: Participating/engaged Psychomotor Behavior: Psychomotor normal Mood: Down Affect and affective range: congruent with mood Thought Process: goal oriented Thought Content: within reality Speech: Normal rate, volume and rhythm Suicidal Ideation: denies Homicidal Ideation: Denies Hallucinations: Denies Delusions: None elicited Impulse Control: unimpaired Insight and Judgment: Limited insight and judgment Memory: Normal Attention: Normal Orientation: Alert, oriented Assessment and Plan (1) Schizoaffective Disorder, Bipolar Type Current Visit: Yes Status: Acute Treatment Plan Patient admitted for inpatient psychiatric evaluation, medication adjustment and close monitoring The patient's behavior, mood, sleep and appetite will be closely monitored. Patient enrolled in individual and group therapeutic sessions and encouraged to attend. Patient provided with a safe and structured environment. Patient's physical health needs will be addressed by the Hospitalist. Hospitalist Consulted Labs including CBC, CMP, Lipid profile and Hemoglobin A1C levels ordered for baseline reference Social Assessment will be completed and the V Block Saw Operator will work with patient and family to ensure a suitable and safe disposition Medication adjustment will be made as clinically indicated No changes today. Risperidone increased yesterday Usual Wellness Episcopalian/Preservation: - Start Trazodone 50 mg po QHS - Start Melatonin 5 mg po QHS to promote circadian rhythm - Start [place]-3 for brain health, reduce impulsivity, and as adjunctive treatment for mood disorder, continue upon discharge given overall benefits. The patient agreed on the treatment plan, understood the risk, benefit, alternative treatment, potential consequence of no treatment, and gave informed consent. Estimated days: 2 Post hospital care: primary care provider, psychiatric provider Medications and Allergies Allergies Allergy/AdvReac Type Severity Reaction Status Date / Time divalproex sodium Allergy Unknown Verified 04/25/20 01:17 [From Depakote] haloperidol [From Haldol] Allergy Unknown Verified 04/25/20 01:17 quetiapine [From Seroquel] Allergy Unknown Verified 04/25/20 01:17 Home Medications Medication Instructions Recorded Confirmed Last Taken Type Albuterol Sulfate [Proair 90 mcg IH Q6H PRN MDD 2 puffs 04/25/20 04/25/20 Unknown History Respiclick] Diclofenac EC [Voltaren] 50 mg PO BID 04/25/20 04/25/20 Unknown History Empagliflozin [Jardiance] 10 mg PO DAILY 04/25/20 04/25/20 Unknown History Furosemide [Lasix TAB] 20 mg PO DAILY 04/25/20 04/25/20 Unknown History Kenalog 0.1% CREAM 1 applic TP BID 04/25/20 04/25/20 Unknown History Losartan [Cozaar] 100 mg PO QDAY 04/25/20 04/25/20 Unknown History Lurasidone HCl [Latuda] 20 mg PO QPM 04/25/20 04/25/20 Unknown History Pantoprazole [Protonix TAB] 40 mg PO DAILY 04/25/20 04/25/20 Unknown History Potassium Chloride [K-Dur] 10 meq PO QDAY 04/25/20 04/25/20 Unknown History buPROPion [Wellbutrin] 100 mg PO DAILY 04/25/20 04/25/20 Unknown History glipiZIDE [Glucotrol] 5 mg PO BID 04/25/20 04/25/20 Unknown History traZODone [Desyrel] 100 mg PO HS 04/25/20 04/25/20 Unknown History Active Meds: Active Medications Albuterol (Proventil) 2.5 mg IH Q4H PRN PRN Reason: Shortness Of Breath Bupropion HCl (Wellbutrin) 100 mg PO DAILY [facility] Last Admin: 04/28/20 17:18 Dose: Not Given Documented by: Diclofenac Sodium (Voltaren) 50 mg PO BID [facility] Last Admin: 04/28/20 10:16 Dose: Not Given Documented by: Fish Oil (Fish Oil) 2,000 mg PO BID [facility] Last Admin: 04/28/20 17:17 Dose: Not Given Documented by: Furosemide (Lasix) 20 mg PO DAILY [facility] Last Admin: 04/28/20 17:17 Dose: Not Given Documented by: Glipizide (Glucotrol) 5 mg PO BIDDIAB [facility] Last Admin: 04/28/20 18:19 Dose: 5 mg Documented by: Losartan Potassium (Cozaar) 100 mg PO QDAY [facility] Last Admin: 04/28/20 17:16 Dose: Not Given Documented by: Melatonin (Melatonin) 5 mg PO QHS [facility] Last Admin: 04/27/20 22:14 Dose: 5 mg Documented by: Miscellaneous Medication (Empagliflozin [Jardiance]) 10 mg PO DAILY [facility] Miscellaneous Medication (Lurasidone Hcl [Latuda]) 20 mg PO QPM [facility] Pantoprazole Sodium (Protonix) 40 mg PO DAILY [facility] Last Admin: 04/28/20 17:17 Dose: Not Given Documented by: Potassium Chloride (K-Dur) 10 meq PO QDAY [facility] Last Admin: 04/28/20 17:17 Dose: Not Given Documented by: Risperidone (Risperdal) 0.5 mg PO BID [facility] Last Admin: 04/28/20 17:17 Dose: Not Given Documented by: Triamcinolone Acetonide (Kenalog) 1 applic TP BID [facility] Last Admin: 04/28/20 17:17 Dose: Not Given Documented by: Results - Results Labs/Vitals: Laboratory Last Values WBC 6.8 K/mm3 (4.5-11.0) 04/27/20 08:56 RBC 4.97 M/mm3 (3.65-5.03) 04/27/20 08:56 Hgb 15.2 gm/dl (11.8-15.2) 04/27/20 08:56 Hct 43.6 % (35.5-45.6) 04/27/20 08:56 MCV 88 fl (84-94) 04/27/20 08:56 MCH 31 pg (28-32) 04/27/20 08:56 MCHC 35 % (32-34) H 04/27/20 08:56 RDW 14.7 % (13.2-15.2) 04/27/20 08:56 Plt Count 193 K/mm3 (140-440) 04/27/20 08:56 Lymph % (Auto) 35.6 % (13.4-35.0) H 04/27/20 08:56 [place] % (Auto) 10.5 % (0.0-7.3) H 04/27/20 08:56 Eos % (Auto) 2.4 % (0.0-4.3) 04/27/20 08:56 Baso % (Auto) 1.0 % (0.0-1.8) 04/27/20 08:56 Lymph # (Auto) 2.4 K/mm3 (1.2-5.4) 04/27/20 08:56 [place] # (Auto) 0.7 K/mm3 (0.0-0.8) 04/27/20 08:56 Eos # (Auto) 0.2 K/mm3 (0.0-0.4) 04/27/20 08:56 Baso # (Auto) 0.1 K/mm3 (0.0-0.1) 04/27/20 08:56 Seg Neutrophils % 50.5 % (40.0-70.0) 04/27/20 08:56 Seg Neutrophils # 3.4 K/mm3 (1.8-7.7) 04/27/20 08:56 Sodium 131 mmol/L (137-145) L 04/27/20 08:56 Potassium 4.3 mmol/L (3.6-5.0) 04/27/20 08:56 Chloride 95.8 mmol/L (98-107) L 04/27/20 08:56 Carbon Dioxide 23 mmol/L (22-30) 04/27/20 08:56 Anion Gap 17 mmol/L 04/27/20 08:56 BUN 17 mg/dL (9-20) 04/27/20 08:56 Creatinine 1.3 mg/dL (0.8-1.3) 04/27/20 08:56 Estimated GFR > 60 ml/min 04/27/20 08:56 BUN/Creatinine Ratio 13 % 04/27/20 08:56 Glucose 193 mg/dL (75-100) H 04/27/20 08:56 POC Glucose 121 mg/dL (70-105) H 04/28/20 07:33 Hemoglobin A1c 6.9 % (4-6) H 04/27/20 08:56 Calcium 9.5 mg/dL (8.4-10.2) 04/27/20 08:56 Total Bilirubin 0.60 mg/dL (0.1-1.2) 04/27/20 08:56 AST 29 units/L (5-40) 04/27/20 08:56 ALT 24 units/L (7-56) 04/27/20 08:56 Alkaline Phosphatase 61 units/L (35-129) 04/27/20 08:56 Total Protein 8.0 g/dL (6.3-8.2) 04/27/20 08:56 Albumin 4.1 g/dL (3.9-5) 04/27/20 08:56 Albumin/Globulin Ratio 1.1 % 04/27/20 08:56 Triglycerides 175 mg/dL (2-149) H 04/27/20 08:56 Cholesterol 170 mg/dL (50-199) 04/27/20 08:56 LDL Cholesterol Direct 110 mg/dL (50-130) 04/27/20 08:56 HDL Cholesterol 42 mg/dL (40-59) 04/27/20 08:56 Cholesterol/HDL Ratio 4.04 % 04/27/20 08:56 TSH 1.070 mlU/mL (0.270-4.200) 04/27/20 08:56 Urine Color Yellow (Yellow) 04/25/20 Unknown Urine Turbidity Clear (Clear) 04/25/20 Unknown Urine pH 6.0 (5.0-7.0) 04/25/20 Unknown Ur Specific [place] 1.005 (1.003-1.030) 04/25/20 Unknown Urine Protein <15 mg/dl mg/dL (Negative) 04/25/20 Unknown Urine Glucose (UA) 150 mg/dL (Negative) 04/25/20 Unknown Urine Ketones Neg mg/dL (Negative) 04/25/20 Unknown Urine Blood Sm (Negative) 04/25/20 Unknown Urine Nitrite Neg (Negative) 04/25/20 Unknown Urine Bilirubin Neg (Negative) 04/25/20 Unknown Urine Urobilinogen < 2.0 mg/dL (<2.0) 04/25/20 Unknown Ur Leukocyte Esterase Neg (Negative) 04/25/20 Unknown Urine WBC (Auto) < 1.0 /HPF (0.0-6.0) 04/25/20 Unknown Urine RBC (Auto) 2.0 /HPF (0.0-6.0) 04/25/20 Unknown U Epithel Cells (Auto) < 1.0 /HPF (0-13.0) 04/25/20 Unknown Last Vital Signs Temp 98.7 F 04/28/20 07:21 Pulse 73 04/28/20 07:21 Resp 18 04/28/20 07:21 BP 125/75 04/28/20 07:21 Pulse Ox 96 04/28/20 07:21
[2020-04-28] MEDS: MELATONIN 5 MG TAB PO SCH (21:22)
--- NOTE | 2020-04-29 09:10 | Discharge Summary ---
Providers - Providers Date of Admission: 04/25/20 02:17 Date of discharge: 04/29/20 Attending physician: MING VILLAR MD 04/25/20 01:19 Consult to Physician [CONS] Routine Comment: Consulting Provider: OLIVIA GOMEZ Physician Instructions: Reason For Exam: New admission Primary care physician: JESSICA ALMARAZ Hospitalization Reason for admission: suicidal thoughts Admitting Diagnosis: F25.0 - SCHIZOAFFECTIVE DISORDER, BIPOLAR TYPE Condition: Stable Hospital course: The patient was provided inpatient psychiatric treatment with safe and supportive care, medication adjustment, adverse effect monitoring, medical evaluations, medical treatments, assessment and psycho-education. The patient's mood, cognition, behavior, moral support are improved and stabilized. St the time of discharge, the patient had no endangering behavior and no debilitating adverse effects. The patient agreed on potential consequences of no treatment and gave informed consent. Disposition: - TO HOME OR SELFCARE Time spent for discharge: 40 Allergies/Adverse Reactions: Allergies divalproex sodium [From Depakote] Allergy (Verified 04/25/20 01:17) Unknown haloperidol [From Haldol] Allergy (Verified 04/25/20 01:17) Unknown quetiapine [From Seroquel] Allergy (Verified 04/25/20 01:17) Unknown Vital Signs: Last Vital Signs Temp 98.8 F 04/28/20 19:34 Pulse 82 04/28/20 19:34 Resp 18 04/28/20 19:34 BP 103/64 04/28/20 19:34 Pulse Ox 97 04/28/20 19:34 Last Lab: Laboratory Last Values WBC 6.8 K/mm3 (4.5-11.0) 04/27/20 08:56 RBC 4.97 M/mm3 (3.65-5.03) 04/27/20 08:56 Hgb 15.2 gm/dl (11.8-15.2) 04/27/20 08:56 Hct 43.6 % (35.5-45.6) 04/27/20 08:56 MCV 88 fl (84-94) 04/27/20 08:56 MCH 31 pg (28-32) 04/27/20 08:56 MCHC 35 % (32-34) H 04/27/20 08:56 RDW 14.7 % (13.2-15.2) 04/27/20 08:56 Plt Count 193 K/mm3 (140-440) 04/27/20 08:56 Lymph % (Auto) 35.6 % (13.4-35.0) H 04/27/20 08:56 [place] % (Auto) 10.5 % (0.0-7.3) H 04/27/20 08:56 Eos % (Auto) 2.4 % (0.0-4.3) 04/27/20 08:56 Baso % (Auto) 1.0 % (0.0-1.8) 04/27/20 08:56 Lymph # (Auto) 2.4 K/mm3 (1.2-5.4) 04/27/20 08:56 [place] # (Auto) 0.7 K/mm3 (0.0-0.8) 04/27/20 08:56 Eos # (Auto) 0.2 K/mm3 (0.0-0.4) 04/27/20 08:56 Baso # (Auto) 0.1 K/mm3 (0.0-0.1) 04/27/20 08:56 Seg Neutrophils % 50.5 % (40.0-70.0) 04/27/20 08:56 Seg Neutrophils # 3.4 K/mm3 (1.8-7.7) 04/27/20 08:56 Sodium 131 mmol/L (137-145) L 04/27/20 08:56 Potassium 4.3 mmol/L (3.6-5.0) 04/27/20 08:56 Chloride 95.8 mmol/L (98-107) L 04/27/20 08:56 Carbon Dioxide 23 mmol/L (22-30) 04/27/20 08:56 Anion Gap 17 mmol/L 04/27/20 08:56 BUN 17 mg/dL (9-20) 04/27/20 08:56 Creatinine 1.3 mg/dL (0.8-1.3) 04/27/20 08:56 Estimated GFR > 60 ml/min 04/27/20 08:56 BUN/Creatinine Ratio 13 % 04/27/20 08:56 Glucose 193 mg/dL (75-100) H 04/27/20 08:56 POC Glucose 106 mg/dL (70-105) H 04/29/20 08:02 Hemoglobin A1c 6.9 % (4-6) H 04/27/20 08:56 Calcium 9.5 mg/dL (8.4-10.2) 04/27/20 08:56 Total Bilirubin 0.60 mg/dL (0.1-1.2) 04/27/20 08:56 AST 29 units/L (5-40) 04/27/20 08:56 ALT 24 units/L (7-56) 04/27/20 08:56 Alkaline Phosphatase 61 units/L (35-129) 04/27/20 08:56 Total Protein 8.0 g/dL (6.3-8.2) 04/27/20 08:56 Albumin 4.1 g/dL (3.9-5) 04/27/20 08:56 Albumin/Globulin Ratio 1.1 % 04/27/20 08:56 Triglycerides 175 mg/dL (2-149) H 04/27/20 08:56 Cholesterol 170 mg/dL (50-199) 04/27/20 08:56 LDL Cholesterol Direct 110 mg/dL (50-130) 04/27/20 08:56 HDL Cholesterol 42 mg/dL (40-59) 04/27/20 08:56 Cholesterol/HDL Ratio 4.04 % 04/27/20 08:56 TSH 1.070 mlU/mL (0.270-4.200) 04/27/20 08:56 Urine Color Yellow (Yellow) 04/25/20 Unknown Urine Turbidity Clear (Clear) 04/25/20 Unknown Urine pH 6.0 (5.0-7.0) 04/25/20 Unknown Ur Specific [place] 1.005 (1.003-1.030) 04/25/20 Unknown Urine Protein <15 mg/dl mg/dL (Negative) 04/25/20 Unknown Urine Glucose (UA) 150 mg/dL (Negative) 04/25/20 Unknown Urine Ketones Neg mg/dL (Negative) 04/25/20 Unknown Urine Blood Sm (Negative) 04/25/20 Unknown Urine Nitrite Neg (Negative) 04/25/20 Unknown Urine Bilirubin Neg (Negative) 04/25/20 Unknown Urine Urobilinogen < 2.0 mg/dL (<2.0) 04/25/20 Unknown Ur Leukocyte Esterase Neg (Negative) 04/25/20 Unknown Urine WBC (Auto) < 1.0 /HPF (0.0-6.0) 04/25/20 Unknown Urine RBC (Auto) 2.0 /HPF (0.0-6.0) 04/25/20 Unknown U Epithel Cells (Auto) < 1.0 /HPF (0-13.0) 04/25/20 Unknown Core Measure Documentation - Palliative Care Palliative Care/ Comfort Measures: Not Applicable - Core Measures Any of the following diagnoses?: none Exam - Constitutional Vitals: Temp Pulse Resp BP Pulse Ox 98.8 F 82 18 103/64 97 04/28/20 19:34 04/28/20 19:34 04/28/20 19:34 04/28/20 19:34 04/28/20 19:34 General appearance: Present: no acute distress - EENT Eyes: Present: PERRL, EOM intact ENT: hearing intact, clear oral mucosa - Neck Neck: Present: supple, normal ROM - Respiratory Respiratory effort: normal Plan Activity: advance as tolerated Weight Bearing Status: Weight Bear as Tolerated Care Plan Goals: maintain good and stable mental health Plan of Treatment: The patient should be compliant with medications, not to use drugs, and not to drink alcohol. The patient understands that if suicidal ideas, homicidal ideas or any endangering feeling arise, the patient should seek assistance including, but not limited to crisis hotline, and emergency room. Health Concerns: DM, HTN Assessment: Schizoaffective, Bipolar Type Follow up with: JESSICA ALMARAZ [Primary Care Provider] - 7 Days Prescriptions: Melatonin [Melatonin 5MG TAB] 5 mg PO QHS #30 tablet traZODone [Desyrel] 100 mg PO HS #30 [place]-3 Fatty Acids/Fish Oil [Fish Oil] 2,000 mg PO BID #120 capsule risperiDONE [RisperDAL] 0.5 mg PO BID #60 tablet
[2020-04-29] MEDS: PANTOPRAZOLE 40 MG TAB PO SCH (10:19)
[2020-04-29] MEDS: risperiDONE 0.25 MG TAB PO SCH ×2 (10:19→21:00)
[2020-04-29] MEDS: POTASSIUM CHLORIDE ER 10 MEQ TAB PO SCH (10:19)
[2020-04-29] MEDS: OMEGA-3 FATTY ACIDS/FISH OIL 1 GRAM CAP PO SCH ×2 (10:19→21:00)
[2020-04-29] MEDS: DICLOFENAC EC 25 MG TAB PO SCH ×2 (10:20→21:00)
[2020-04-29] MEDS: LOSARTAN 50 MG TAB PO SCH (10:20)
[2020-04-29] MEDS: FUROSEMIDE 20 MG TAB PO SCH (10:20)
[2020-04-29] MEDS: buPROPion 100 MG TAB PO SCH (10:21)
[2020-04-29] MEDS: TRIAMCINOLONE 0.1% CREAM 15 GM TP SCH ×2 (10:21→21:01)
[2020-04-29 10:22] VITALS: BP 127/72
[2020-04-29] MEDS: glipiZIDE 5 MG TAB PO SCH ×2 (10:54→16:52)
--- NOTE | 2020-04-29 17:55 | XRay Report ---
CHEST 1 VIEW INDICATION / CLINICAL INFORMATION: PROTOCOL FOR PLACEMENT, TB CHECK. COMPARISON: None available. FINDINGS: SUPPORT DEVICES: None. HEART / MEDIASTINUM: No significant abnormality. LUNGS / PLEURA: No significant pulmonary or pleural abnormality.. No pneumothorax. ADDITIONAL FINDINGS: No significant additional findings. IMPRESSION: 1. No acute findings. Signer Name: Shan Laguna MD Signed: 04/28/2020 3:25 PM Workstation Name: [id number]
[2020-04-29] MEDS: MELATONIN 5 MG TAB PO SCH (21:00)
== END 2020-04-29 21:10 | disposition home or self-care (01) | DRG 885 ==
LOC: UNDOADMIN 23:46 → 3A 23:46 → 5A 04-25 02:17
PROVIDERS: ADMIT Psychiatry & Neurology Psychiatry; ATTEND Psychiatry & Neurology Psychiatry
DX: F25.0 Schizoaffective disorder, bipolar type (principal); Z20.828 Contact with and (suspected) exposure to other viral communicable diseases; Z88.8 Allergy status to other drugs, medicaments and biological substances; I10 Essential (primary) hypertension; E11.9 Type 2 diabetes mellitus without complications; Z79.84 Long term (current) use of oral hypoglycemic drugs
CPT/HCPCS: 36415; 71045; 80053; 80061; 81001; 82962; 83036; 84443; 85025; G0378; U0003